=== PATIENT | female | born 1995 | race Caucasian/White ===

== ENCOUNTER 2023-02-26 19:25 | Emergency (ER) | payer MEDICAID ==
[~2023-02-26] VITALS: Ht 165.1 cm; Wt 82.1 kg
[2023-02-26 19:48] VITALS: O2SAT 99
[2023-02-26] MEDS ORDERED: CYCL5TAB MT (21:44)
[2023-02-26 22:06] VITALS: BP 128/83; PULSE 104; RESP 16
[2023-02-26] MEDS ORDERED: KETOROLAC 60MG/2ML VIAL IM ONE (22:15)
== END 2023-02-26 22:10 | disposition home or self-care (01) ==
LOC: ER 19:25
DX: S39.012A Strain of muscle, fascia and tendon of lower back, initial encounter (principal); X58.XXXA Exposure to other specified factors, initial encounter; Y93.89 Activity, other specified; Y92.89 Other specified places as the place of occurrence of the external cause; Y99.8 Other external cause status
CPT/HCPCS: 99283; 96372; J1885